=== PATIENT | female | born 1955 | race Caucasian/White ===

== ENCOUNTER 2018-07-24 06:40 | Observation (INO) ==
--- NOTE | 2018-07-24 06:58 | Anesthesia Evaluation PreOp ---
Date of Encounter: 07/24/18 Time of Encounter: 06:56 - Past History Planned Operation: Lap crystal Cardiac History: HTN, Hyperlipidemia Pulmonary History: Denies Any Significant HX OPERATIONS SCHEDULER History: Denies Any Significant HX Other Medical History: Renal (CKD 3), Other (polycystic ovarian ds) Anesthesia History: No Prior Anesthetic Complications, Past Anesthesia (bowel resection, CHERIE, T&A,) Alcohol Use: none Drug use: none Medications and Allergies Ciprofloxacin [Cipro] 500 mg PO BID #10 tablet 06/23/17 [Rx] Polyethylene Glycol 3350 [MiraLAX Powder Bulk 17.9 Oz] 1 scoop PO DAILY #510 gm 06/23/17 [Rx] Tramadol HCl [Ultram] 50 mg PO TID PRN #12 tab 06/23/17 [Rx] 3 Allergy/AdvReac Type Severity Reaction Status Date / Time No Known Allergies Allergy Verified 07/10/18 08:39 - Meds/Allergy Pre-op Review Medications Reviewed: Yes Allergies Reviewed: Yes Beta Blockers on Current Med List: No Anesthesia Results - Labs Laboratory Tests 01/23/18 07/10/18 07/10/18 08:02 08:58 08:58 Hgb 12.8 Hct 39.4 Plt Count 292 Sodium 139 Potassium 3.9 Chloride 104 Carbon Dioxide 28 BUN 19 Creatinine 0.87 - Imaging EKG: report reviewed (SINUS RHYTHM MINIMAL ST DEPRESSION) Anesthesia Exam - HEENT Pupil (Motor): EOMI Mallampati: II Teeth: Normal Oral Opening: Greater than 3 - OPERATIONS SCHEDULER LOC: Oriented OPERATIONS SCHEDULER Motor: Normal RUE, Normal LUE, Normal RLE, Normal LLE, Normal Face OPERATIONS SCHEDULER Sensory: Normal: RUE, LUE, RLE, LLE, Face - Cardiac Rhythm: Regular Murmur: None - Pulmonary Breath Sounds: bilateral Clear Respiratory Effort: Symmetrical Anesthesia Assess/Plan ASA Score: 2 Modified [place] Scale for Level of Consciousness: Cooperative, oriented, and tranquil Anesthetic Plan: General Monitoring Plan: Standard Monitors Recovery Plan: PACU (agrees to GA)
[2018-07-24] MEDS ORDERED: CeFAZolin Syr 2,000MG/20 ML 2,000 MG/20 ML SYRINGE IVPB ONE (07:06)
[2018-07-24] MEDS: Celecoxib 100 MG CAPSULE PO ONE ×2 (07:15→11:13)
[2018-07-24] MEDS ORDERED: Ringers Solution, Lactated 1,000 ML IVC SCH (07:15)
--- NOTE | 2018-07-24 07:38 | History & Physical Report ---
Date of Encounter: 07/24/18 Time of Encounter: 07:05 24 Hour HP Update - Instructions Instructions: If the History and Physical is less than 30 days old and was completed prior to A.M. admission and or procedure and has NOT been updated on calendar day of procedure please complete this update prior to performing procedure. - Update Patient reports changes in Medical Condition: No Changes in examination, assessment, or condition: No Changes in Medication: No Preop tests/diagnostics Reviewed: Yes Surgery Remains Indicated: Yes Consent for Planned Operative Procedure(s) Verified: Yes - Pre-Operative Checklist Preoperative Checklist Indicated: Yes Prophylactic Antibiotic Ordered: Yes Home Medications Include Beta Deepak: No Beta Deepak Taken Today (Day of Surgery): No Beta Deepak Taken Yesterday (Day Prior to Surgery): No Is VTE Prophylaxis Indicated?: Yes
[2018-07-24] MEDS ORDERED: Bupivacaine/EPI 1:200k 0.25%PF 30 ML VIAL ONE (07:40)
[2018-07-24] MEDS ORDERED: Isovue-300 50 ML VIAL IVP ONE (07:49)
[2018-07-24] MEDS ORDERED: *HR* FentaNYL (PF) 100 MCG/2 ML VIAL ONE (08:24)
[2018-07-24] MEDS ORDERED: EPHEDrine 50 MG/ML VIAL ONE (08:24)
[2018-07-24] MEDS ORDERED: *HR* Midazolam HCl 2 MG/2 ML VIAL ONE (08:24)
[2018-07-24] MEDS ORDERED: *HR* Propofol 200 MG/20 ML VIAL IVP ONE (08:24)
[2018-07-24] MEDS ORDERED: *HR* Morphine 10 MG/ML VIAL ONE (08:25)
[2018-07-24] MEDS ORDERED: Neostigmine Methylsulfate 3 MG/3 ML SYRINGE ONE (08:26)
[2018-07-24] MEDS ORDERED: Ondansetron 4 MG/2 ML VIAL IVP ONE (09:01)
[2018-07-24] MEDS ORDERED: *HR* Morphine 2 MG/ML SYRINGE IVP PRN (09:01)
[2018-07-24] MEDS ORDERED: *HR* OxyCODONE/APAP 5/325 TABLET PO PRN (09:19)
[2018-07-24] MEDS ORDERED: Ringers Solution, Lactated 500 ML IVC ONE (09:21)
--- NOTE | 2018-07-24 09:32 | Operative Note ---
Date of procedure: 07/24/18 Pre-op diagnosis: cholecystitis, cholelithiasis, biliary colic Post-op diagnosis: same Procedure: Laparoscopic cholecystectomy, intraoperative cholangiogram Complications: None apparent Anesthesia: GETA Local Anesthetics: 0.25% Sensorcaine HCL with Epinephrine 1:200,000 SubQ (cc) ( 30 mL) Surgeon: Ahmet Boggs Was there an inventory control assistant present: No Software Publisher Other: ANUSHA Anne Estimated blood loss (cc): 5 IV fluids (cc): 1,400 Specimen: gallbladder Condition: stable Disposition: PACU Procedure in Detail: The patient was brought to the operating room where she was placed supine on the procedure table. The patient was appropriately identified as to person and procedure. The accuracy of this information was confirmed by the procedure team. The patient was then intubated and anesthetized under the supervision of Dr. Herman Pineda. here were no palpable intra-abdominal masses when the abdomen was examined under anesthesia. The gallbladder was not obviously enlarged. The abdomen was then prepped and draped in the usual sterile fashion. Due to a previous history of transabdominal surgery through a low midline incision, the laparoscopic approach was initiated in the right upper quadrant, midclavicular line. Several milliliters of 0.25% bupivacaine were infiltrated in this location. A small transverse incision was made. The abdominal wall was grasped and elevated. A 5 mm port was established. The rigid laparoscope was placed within the obturator to visualize passage through the layers of the anterior abdominal wall. When the abdominal cavity was accessed, the obturator was replaced by the rigid laparoscope, the abdomen was insufflated with gaseous carbon dioxide. There was no obvious visible injury from establishing the port. There were significant adhesions at the level of the umbilicus. The usually placed infraumbilical port was placed cephalad and to the right of the umbilicus where there were no adhesions. This port was established under direct visualization. The rigid laparoscope was then shifted to this location to visualize placement of the remaining ports. All ports were infiltrated with bupivacaine with epinephrine solution. The gallbladder was tensely distended. It was necessary to aspirate approximately 60 mL clear green bile decompress the gallbladder. The gallbladder was then retracted exposing the hepatoduodenal ligament. This was dissected to skeletonize both the cystic duct and cystic artery. The cystic artery was clipped twice proximally and twice distally. The duct was clipped near the infundibulum the gallbladder. Via a separate percutaneous insertion site, a Taut cholangiogram catheter was introduced. The cystic duct was incised, the cholangiogram catheter inserted. Using C-arm fluoroscopy, a cholangiogram was then completed demonstrating a normal-appearing hepatobiliary tree. There were no filling defects. Dr Lombardo, [facility], provided an intra operative reading of the cholangiogram. The cholangiogram catheter was removed, the cystic duct was clipped and divided. The cystic artery was divided. The gallbladder was dissected from the liver bed using Ethicon harmonic halie. Once from the liver bed, the gallbladder was placed in an endoscopic pouch and removed via the port in the right lower anterior abdominal wall. The gallbladder was retrieved and sent to pathology. Multiple stones were palpable within the gallbladder. The liver bed was inspected for adequate hemostasis. When this was determined to be acceptable, pneumoperitoneum was evacuated and the the laparoscopic instrumentation was removed. The fascia of the right lower anterior abdominal wall port was closed with an interrupted figure-of- eight 0 Vicryl using S retractors. The skin edges of the port sites were approximated with subcuticular 4-0 Vicryl. The incisions were sealed with Dermabond dermal adhesive. The patient was returned to PACU in stable condition. Needle, sponge, and instrument counts were correct at the close of the case. Total volume of 0.25% bupivacaine with 1-200,000 units epinephrine used, 30 mL.
--- NOTE | 2018-07-24 10:12 | Event Note ---
Date of Encounter: 07/24/18 Time of Encounter: 10:11 Patient is demonstrating cardiac dysrhythmia following completion of laparoscopic cholecystectomy with intraoperative cholangiogram. Preoperative EKG was normal, however, postoperative EKG is not. This is been discussed with anesthesia as well as [facility] cardiology. It has been recommended that the patient be admitted to the floor for overnight monitoring and cardiac evaluation. The patient is aware of these findings and treatment plans.
--- NOTE | 2018-07-24 11:00 | Anesthesia Evaluation Post Op ---
Date of Encounter: 07/24/18 Time of Encounter: 10:56 - Vital Signs Vital Signs: Selected Entries 07/24/18 10:46 Temperature 98.5 F Pulse Rate 89 Respiratory Rate 14 Blood Pressure 136/79 O2 Sat by Pulse Oximetry 98 - Lungs Lungs: Clear Ascult./Percussion - Airway Airway: Non-obstructed - Cardiovascular Irregular Rate, New Rhythm (Patient has developed many supraventricular ectopic beats. No ST changes on EKG. Rate varies from 80's to low 100's. BP and sats are normal. Patient has no symptoms other than EKG changes. EKG reviewed with cardiology and they suggest observation of rhythm over nite. This is communicated to Dr Boggs.) - Mental Status Mental Status: Alert & Oriented, Answers Appropriately - Pain Pain Scale: 1 Pain Scale used: Numeric (1 - 10) - Nausea Vomiting Nausea Vomiting: Not Present - Hydration Hydration: Ice chips, Has not voided Notes: 07/24/18 11:00 I did order a potassium in PACU although there is no reason that it should be outside of normal limits but is a rule out lab for the arrhythmia. It is still pending at discharge to floor. - Discharge PostOp Status: Transfer Patient to floor
[2018-07-24] MEDS ORDERED: Acetaminophen 325 MG TABLET PO PRN (11:27)
--- NOTE | 2018-07-24 11:36 | Operative Note ---
Date of procedure: 07/24/18 Pre-op diagnosis: Left inguinal hernia Post-op diagnosis: same (Left inguinal sliding hernia) Procedure: Repair of left inguinal sliding hernia with Bard PerFix plug and Marlex mesh onlay patch Implants: Bard PerFix plug, Marlex mesh onlay patch Complications: None apparent Anesthesia: GETA Local Anesthetics: 0.25% Sensorcaine HCL with Epinephrine 1:200,000 SubQ (cc) ( 30 mL) Surgeon: Ahmet Boggs Was there an visitor service assistant present: No Steam Trap Man Other: ANUSHA duran Estimated blood loss (cc): 2 IV fluids (cc): 1,000 Specimen: none Condition: stable Disposition: PACU Procedure in Detail: The patient was brought to the operating room where he was placed supine on the procedure table. The patient was appropriately identified as to person, procedure, and laterality. The accuracy of this information was confirmed by the patient and procedure team. The patient was then intubated and anesthetized under the supervision of Dr. Herman Pineda. The abdomen and genitalia were prepped and draped in the usual sterile fashion. An oblique skin incision was planned with a skin scribe just cephalad and parallel to an imaginary line drawn from the anterior superior iliac spine to the pubic tubercle. Several milliliters of 0.25% bupivacaine with 1-200,000 units of epinephrine before the skin was incised. Dissection was extended to the aponeurosis of the external oblique. Bleeding points were controlled with electrocautery. The aponeurosis was incised in the direction of its fibers. The spermatic cord was identified, skeletonized, And tagged with a half-inch [place] drain. Examination of the spermatic cord did not demonstrate an indirect inguinal hernia. Examination of Hesselbach triangle did not demonstrate a direct hernia. Other exploration of the spermatic cord demonstrated a hernia sac proximally near the internal ring. This was dissected from the surrounding tissue. It became apparent that this was a sliding inguinal hernia involving the sigmoid. The sigmoid colon was reduced. The defect filled with a Bard PerFix plug which was anchored to the surrounding fascial edges with interrupted 2-0 Vicryl. Several milliliters of 0.25% bupivacaine with 1-200,000 units epinephrine was infiltrated into these fascial edges. A knitted polypropylene mesh prosthesis was then placed around the spermatic cord. This prosthesis placed at the pubic tubercle and extended circumferentially around the spermatic cord. The prosthesis was anchored to the pubic tubercle medially, the shelving edge of the inguinal ligament inferiorly and the transversalis fascia cephalad with interrupted 2-0 Vicryl. Several milliliters of bupivacaine with 1-200,000 epinephrine was infiltrated into this repair. The aponeurosis was then closed over the mesh repair with interrupted 2-0 Vicryl. The subcutaneous tissue was approximated with 3-0 Vicryl. The skin edges were approximated with subcuticular 4-0 Vicryl. The incision was sealed with Dermabond dermal adhesive. The patient was taken to recovery in stable condition. Needle, sponge, and instrument counts were correct at the close of the case. Total volume of 0.25% bupivacaine with 1-200, 000 units epinephrine used, 30 mL.
--- NOTE | 2018-07-24 12:43 | Cardiology Consult Note ---
Date of Encounter: 07/24/18 Time of Encounter: 12:20 Assessment and Plan (1) Atrial tachycardia Current Visit: Yes Status: Acute ECGs/telemetry strips reviewed with Dr. Juarez; appear to be runs of atrial tachycardia in the post-operative (lap crystal) setting. Patient reports intermittent palpitations (occur at night) that have been present for the past year--not bothersome. Telemetry reviewed; few PACs, PVCs noted. Describes mild, non-radiating chest pressure during events; improves with sitting up. Troponin negative. Patient reports she is fairly active at home, push mows lawn (1.5-2 hours) without symptoms. Will add low dose BB. Check BMP, Mg, TSH in AM. Check TTE to evaluate structure and function. Recommend outpatient follow-up with Cardiology in 4-6 weeks. Discussion w patient/family: The assessment and plan as outlined above was discussed with the patient and/or family members who expressed understanding and agreement. All questions were answered. Thank you for involving us in the care of your patient. Please call with any questions. The patient will be discussed and reviewed with Dr. Juarez; changes to be made accordingly. History of Present Illness Consult date: 07/24/18 Requesting physician: Ahmet Boggs Consult reason: Arrhythmia Chief complaint: Chest pressure History of present illness: Ms. Amezcua is a 63 year old female with PMHx significant for HTN and MVP who presented today for elective lap. cholecystectomy. She tolerated procedure well ; however in the recovery room there was a concern for new cardiac arrhythmia on monitor. She was then admitted for observation overnight. Patient denies prior diagnosis of arrhythmia; however reports palpitations that occur often, mostly at night, over the past year. She states palpitations are not bothersome and usually improve with sitting up. Also reports intermittent non-radiating chest pressure that also occurs while laying down, improves with sitting up. Ms. Amezcua reports she is very active at home, is able to push mow lawn ( usually takes 1.5-2 hours) without chest pain or discomfort. She notes she was told by her PCP in December 2017 that she may have an irregular heart beat, however ECG completed in office was normal. She has no complaints upon exam. Past Med Surg Social Fam HX - Past Medical History Attestation: Yes The following information was validated with the patient. Source: patient Medical history: hypertension Additional medical history: gallstones. HTN. Colonic polyps. Vit D Def. Diverticulosis. Fatigue. OP. MVP HX. Polycystic ovarian syndrome Psychiatric history: no psych history - Past Surgical History Surgical History: cholecystectomy, hysterectomy Additional surgical history: colonoscopy 2013. hysterectomy 1999. bowel resection 1999. T&A 1956. polypectomy 1985. tubal ligation 1984 - Social History Smoking Status: Former smoker Smokeless Tobacco Status: No Alcohol use: none Drug use: none - Family History Mother Living Status: Cause of : Kidney failure Hx Family Autoimmune Disorders: Yes (RA) Hx Family Medical Disorders: Yes (Renal failure) Father Living Status: Cause of : Complications d/t Alzeheimers Hx Family Neurologic Disorders: Yes (Alzeheimers) Medications and Allergies Losartan [Cozaar] 25 mg PO DAILY 07/24/18 [History] Multivitamin [Multivitamins] 1 each PO DAILY 07/24/18 [History] 3 Allergy/AdvReac Type Severity Reaction Status Date / Time No Known Allergies Allergy Verified 07/24/18 07:11 All Systems Review: The remainder of the systems were reviewed and are negative - Cardiovascular Cardiovascular: as per HPI Physical Examination Vital Signs, Last 4 Hours Temp Pulse Resp BP Pulse Ox 07/24/18 11:30 80 16 114/78 95 07/24/18 11:10 97.8 F 66 17 138/74 94 07/24/18 10:46 98.5 F 89 14 136/79 98 07/24/18 10:36 105 15 145/59 97 07/24/18 10:26 98.5 F 103 14 139/71 96 07/24/18 10:16 101 15 135/73 99 07/24/18 10:06 118 14 139/82 97 07/24/18 09:56 97.7 F 117 13 136/76 96 07/24/18 09:46 123 14 118/68 96 07/24/18 09:36 98 15 112/64 98 07/24/18 09:26 97.2 F L 89 16 127/64 100 General: Conversant HEENT: Atraumatic, Normocephaly Cardiac: Reg Rate and Rhythm, Normal S1 and S2 Lungs: Normal Breath Sounds Neuro: Alert and responsive Abdomen: Soft Skin: No rashes noted on visualized skin Musculoskeletal: No Chest Wall Tenderness Extremities: No Edema, Normal Pulses Results 07/24/18 09:54 Lab Results 07/24/18 07/24/18 09:54 11:31 Potassium 3.7 Troponin I < 0.03 Active Medications Acetaminophen (Tylenol) 650 mg PO Q6HR PRN PRN Reason: Pain Stop: 01/23/19 11:28 Oxycodone/Acetaminophen (Percocet 5/325) 1 each PO Q6H PRN PRN Reason: pain not relieved by Tylenol Stop: 01/23/19 09:31 - Imaging and Cardiology Echo: pending Other Results: 12 hour tele: avg HR=85 SR. PVCs,PACs noted. - EKG Interpretation EKG results cardiology: personally reviewed Consult Discharge Plan - Plan Referrals: Torrie De La Cruz CNP [Primary Care Provider] -
[2018-07-24] MEDS ORDERED: Perflutren Lipid Microsphere 1.3 ML in 0.9 % Sodium Chloride 8.7 ML IVP ONE (16:18)
[2018-07-24] MEDS ORDERED: Ondansetron 4 MG/2 ML VIAL IVP PRN (17:05)
--- NOTE | 2018-07-24 17:09 | General Surgery Progress Note ---
Date of Encounter: 07/24/18 Time of Encounter: 17:06 Subjective Narrative: General Surgery - Postop; patient feeling well, describes minimal pain. Cardiac rhythm apparently has returned normal. Cardiac evaluation in progress. Appreciate Dr. Juarez's assistance. Lungs: Clear Abdomen: Soft with minimal right upper quadrant tenderness. Port sites intact. Active bowel sounds. Potassium 3.7; troponins less than 0.03 Echocardiogram completed but results pending Impression: Acceptable postoperative status, status post laparoscopic cholecystectomy with intraoperative cholangiogram. Postoperative dysrhythmia of uncertain significance. Evaluation in progress. Objective Vital Signs - Last 8 Hours Temp Pulse Resp BP Pulse Ox 07/24/18 16:34 97.5 F L 76 17 130/69 92 07/24/18 12:39 56 16 106/68 97 07/24/18 11:30 80 16 114/78 95 07/24/18 11:10 97.8 F 66 17 138/74 94 07/24/18 10:46 98.5 F 89 14 136/79 98 07/24/18 10:36 105 15 145/59 97 07/24/18 10:26 98.5 F 103 14 139/71 96 07/24/18 10:16 101 15 135/73 99 07/24/18 10:06 118 14 139/82 97 07/24/18 09:56 97.7 F 117 13 136/76 96 07/24/18 09:46 123 14 118/68 96 07/24/18 09:36 98 15 112/64 98 07/24/18 09:26 97.2 F L 89 16 127/64 100 Intake and Output 07/24/18 07/24/18 07/24/18 07:59 15:59 23:59 Intake Total 360 / 360 Output Total 5 / 5 Balance 355 / 355 Intake: Oral 360 / 360 Output: Estimated Blood Loss 5 / 5 Other: Meal Lunch Percent of Meal Consumed 90% Weight 83.008 kg Patient Weight 07/24/18 23:59 Weight 83.008 kg - Labs 07/24/18 09:54 Diabetes panel 07/24/18 Range/Units 09:54 Potassium 3.7 (3.5-5.1) mEq/L Pituitary panel 07/24/18 Range/Units 09:54 Potassium 3.7 (3.5-5.1) mEq/L Adrenal panel 07/24/18 Range/Units 09:54 Potassium 3.7 (3.5-5.1) mEq/L Consult Discharge Plan - Plan Referrals: Torrie De La Cruz, WEN [Primary Care Provider] -
[2018-07-25 06:54] LABS: BUN/Creatinine Ratio 17 (6-26); Blood Urea Nitrogen 13 mg/dL (8-23); Calcium 8.8 mg/dL (8.6-10.3); Carbon Dioxide 26 mEq/L (23-29); Chloride 100 mEq/L (98-107); Glucose 100 mg/dL (70-105); Magnesium 2.2 mg/dL (1.6-2.6); Osmolality,Calculated 274 (280-300); Potassium 3.8 mEq/L (3.5-5.1); Sodium 132 mEq/L (136-145); eGFR For Non-African Americans > 60 (> 60)
[2018-07-25 07:25] VITALS: BP 135/70
--- NOTE | 2018-07-25 09:41 | Cardiology Progress Note ---
Date of Encounter: 07/25/18 Time of Encounter: 09:30 Assessment and Plan (1) Atrial tachycardia Current Visit: Yes Status: Acute ECGs/telemetry strips reviewed with Dr. Juarez; appear to be runs of atrial tachycardia in the post-operative (lap crystal) setting. Patient reports intermittent palpitations (occur at night) that have been present for the past year--not bothersome. Telemetry reviewed; few PACs, PVCs noted. Describes mild, non-radiating chest pressure during events; improves with sitting up. Troponin negative. Patient reports she is fairly active at home, push mows lawn (1.5-2 hours) without symptoms. No significant events on telemetry overnight, continue BB. TTE shows preserved LVEF with normal wall motion. Labs including electrolytes and TSH normal. Cardiology will sign-off, will coordinate outpatient follow-up with Cardiology in 4-6 weeks. Discussion w patient/family: The assessment and plan as outlined above was discussed with the patient and/or family members who expressed understanding and agreement. All questions were answered. Thank you for involving us in the care of your patient. Please call with any questions. The patient will be discussed and reviewed with Dr. Uribe; changes to be made accordingly. Subjective Principal diagnosis: Post op lap crystal/atach Interval history: Seen and examined; no events noted overnight on telemetry. No complaints of palpitations overnight. No chest pain described. Objective Vital Signs, Last 4 Hours Temp Pulse Resp BP Pulse Ox 07/25/18 07:24 98.4 F 66 20 135/70 98 General: Conversant, No Apparent Distress HEENT: Atraumatic, Normocephaly, Mucus Membranes Moist Cardiac: Reg Rate and Rhythm, Normal S1 and S2 Lungs: Normal Breath Sounds Neuro: Alert and responsive Abdomen: Soft Skin: No rashes noted on visualized skin Musculoskeletal: No Chest Wall Tenderness Extremities: No Edema, Normal Pulses Results 07/25/18 04:59 Lab Results 07/24/18 07/24/18 07/25/18 09:54 11:31 04:59 Sodium 132 L Potassium 3.7 3.8 Chloride 100 Carbon Dioxide 26 BUN 13 Creatinine 0.76 Glucose 100 Calcium 8.8 Magnesium 2.2 Troponin I < 0.03 TSH 07/25/18 04:59 Sodium Potassium Chloride Carbon Dioxide BUN Creatinine Glucose Calcium Magnesium Troponin I TSH 0.765 Impressions Echocardiogram 07/24/18 12:41 Impressions: LVEF 55-60%. Mild left ventricular diastolic dysfunction. There is no LV thrombus. Definity echo contrast was used. Normal right ventricular structure and function. No significant valvular dysfunction Unable to estimate RVSP due to lack of TR jet. Left Ventricular Wall Motion: Rest Echo Findings All wall segments showed normal motion. Findings: Study Quality * Technically sub-optimal due to poor echocardiographic windows. ECG Findings * Normal sinus rhythm. Left Ventricle * LVEF 55-60%. * Mild concentric left ventricular hypertrophy. * Mild left ventricular diastolic dysfunction. * There is no LV thrombus. * Definity echo contrast was used. Right Ventricle * Normal right ventricular structure and function. Left Atrium * Normal left atrial size. Right Atrium * Normal right atrial size. Interatrial Septum * No evidence of PFO by color Doppler. Aortic Valve * Aortic valve not well visualized. * No aortic stenosis. Mitral Valve * Normal mitral valve structure. * No mitral regurgitation. * No mitral stenosis. Tricuspid Valve * Normal tricuspid valve structure. * No tricuspid regurgitation. * No tricuspid stenosis. * Unable to estimate RVSP due to lack of TR jet. Pulmonic Valve * Pulmonic valve is not well visualized. Aorta * Normally sized aortic root. Pericardium * The pericardium appears normal. IVC * Normal IVC dimensions and inspiratory collapse. Pulmonary Artery * Normal visualized portions of the main pulmonary artery. Active Medications Acetaminophen (Tylenol) 650 mg PO Q6HR PRN PRN Reason: Pain Stop: 01/23/19 11:28 Metoprolol Tartrate (Lopressor) 12.5 mg PO BID LAYLA Stop: 01/23/19 21:01 Last Admin: 07/25/18 08:38 Dose: 12.5 mg Ondansetron HCl (Zofran) 4 mg IVP Q4H PRN; Protocol PRN Reason: nausea / vomiting Stop: 01/23/19 17:06 Oxycodone/Acetaminophen (Percocet 5/325) 1 each PO Q6H PRN PRN Reason: pain not relieved by Tylenol Stop: 01/23/19 09:31 - Imaging and Cardiology Echo: report reviewed Other Results: 12 hour tele: avg HR=67 SR. Few PACs noted. - EKG Interpretation EKG results cardiology: personally reviewed Consult Discharge Plan - Plan Referrals: Torrie De La Cruz, [employer]END[employer] [Primary Care Provider] -
--- NOTE | 2018-07-25 10:59 | Discharge Summary ---
Outpatient Proc Discharge Plan - Plan Additional Instructions: Patient may consume a regular diet Activity as tolerated; lifting limited less than 20 pounds Patient may shower, wash incision with soap and water Tylenol, ibuprofen, Motrin, Advil, etc. as needed for pain Prescription for Metoprolol XL 12.5 mg by mouth BID (per cardiology) Prescription for Percocet 5/325, #8, one every 6-8 hours as needed for pain not relieved by Tylenol or other [id number] medications Follow-up my office, 1 week, 08/01/18. Follow-up with cardiology, Dr. Juarez, 4 weeks. Please call to make appointment Patient to resume home meds Prescriptions: Metoprolol [Lopressor] 12.5 mg PO BID #60 tablet OxyCODONE/APAP 5/325 [Percocet 5/325 MG] 1 each PO Q6H PRN 2 Days #8 tablet PRN Reason: Pain Home Medications: Losartan [Cozaar] 25 mg PO DAILY 07/24/18 [History] Multivitamin [Multivitamins] 1 each PO DAILY 07/24/18 [History] Acetaminophen [Tylenol] 650 mg PO Q6HR PRN tablet 07/25/18 [Rx] Metoprolol [Lopressor] 12.5 mg PO BID #60 tablet 07/25/18 [Rx] OxyCODONE/APAP 5/325 [Percocet 5/325 MG] 1 each PO Q6H PRN 2 Days #8 tablet [Rx]
--- NOTE | 2018-07-25 12:27 | General Surgery Progress Note ---
Date of Encounter: 07/25/18 Time of Encounter: 10:30 Subjective Patient reports: feels better Narrative: General Surgery - POD#1 Patient feeling well; denies significant port site pain or tenderness Cardiac status stable; dysrhythmia/atrial tachycardia controlled/resolved. Appreciate Dr. Juarez's assistance Patient has remained afebrile since surgery; currently 98.4, pulse 66 and regular, respirations 20 and nonlabored, blood pressure 135/70 Lungs: Clear Abdomen: Soft, minimal tenderness at the port site right lower abdomen. Port sites intact. No peritoneal signs. Active bowel sounds. Operative pathology: Chronic cholecystitis, cholelithiasis. Impression: Postoperative day #1, status post laparoscopic cholecystectomy with intraoperative cholangiogram. Postoperative atrial tachycardia - resolved/controlled Acceptable postoperative status Plan: Discharge home Outpatient follow-up in the office, 08/01/18 Cardiac follow-up with Dr. Juarez, approximately 4 weeks. Objective Vital Signs - Last 8 Hours Temp Pulse Resp BP Pulse Ox 07/25/18 07:24 98.4 F 66 20 135/70 98 07/25/18 04:25 98.5 F 74 16 118/65 96 Intake and Output 07/24/18 07/25/18 07/25/18 23:59 07:59 15:59 Intake Total 420 / 420 550 / 550 120 / 120 Balance 420 / 420 550 / 550 120 / 120 Intake: Oral 420 / 420 550 / 550 120 / 120 Other: Meal Dinner Breakfast Percent of Meal Consumed 100% # Voids 2 - Labs 07/25/18 04:59 Diabetes panel 07/25/18 Range/Units 04:59 Sodium 132 L (136-145) mEq/L Potassium 3.8 (3.5-5.1) mEq/L Chloride 100 (98-107) mEq/L Carbon Dioxide 26 (23-29) mEq/L BUN 13 (8-23) mg/dL Creatinine 0.76 (0.60-1.20) mg/dL Glucose 100 (70-105) mg/dL Calcium 8.8 (8.6-10.3) mg/dL Thyroid panel 07/25/18 Range/Units 04:59 TSH 0.765 (0.340-5.600) mcIU/mL Calcium panel 07/25/18 Range/Units 04:59 Calcium 8.8 (8.6-10.3) mg/dL Pituitary panel 07/25/18 07/25/18 Range/Units 04:59 04:59 Sodium 132 L (136-145) mEq/L Potassium 3.8 (3.5-5.1) mEq/L Chloride 100 (98-107) mEq/L Carbon Dioxide 26 (23-29) mEq/L BUN 13 (8-23) mg/dL Creatinine 0.76 (0.60-1.20) mg/dL Glucose 100 (70-105) mg/dL Calcium 8.8 (8.6-10.3) mg/dL TSH 0.765 (0.340-5.600) mcIU/mL Adrenal panel 07/25/18 Range/Units 04:59 Sodium 132 L (136-145) mEq/L Potassium 3.8 (3.5-5.1) mEq/L Chloride 100 (98-107) mEq/L Carbon Dioxide 26 (23-29) mEq/L BUN 13 (8-23) mg/dL Creatinine 0.76 (0.60-1.20) mg/dL Glucose 100 (70-105) mg/dL Calcium 8.8 (8.6-10.3) mg/dL Consult Discharge Plan - Plan Instructions: Metoprolol (By mouth), Oxycodone/Acetaminophen (By mouth) Additional Instructions: Patient may consume a regular diet Activity as tolerated; lifting limited less than 20 pounds Patient may shower, wash incision with soap and water Tylenol, ibuprofen, Motrin, Advil, etc. as needed for pain Prescription for Metoprolol XL 12.5 mg by mouth BID (per cardiology) Prescription for Percocet 5/325, #8, one every 6-8 hours as needed for pain not relieved by Tylenol or other [id number] medications Follow-up my office, 1 week, 08/01/18. Follow-up with cardiology, Dr. Juarez, 4 weeks. Please call to make appointment Patient to resume home meds Referrals: Torrie De La Cruz, WEN [Primary Care Provider] - 07/31/18 1:00 pm Prescriptions: Metoprolol [Lopressor] 12.5 mg PO BID #60 tablet OxyCODONE/APAP 5/325 [Percocet 5/325 MG] 1 each PO Q6H PRN 2 Days #8 tablet PRN Reason: Pain
--- NOTE | 2018-07-28 09:23 | Electrocardiograph Report ---
[place] [id number] Test Date: 2018-07-24 Pat Name: Daxa Amezcua Department: 106 Room: 3B38 Gender: F [employer] Electronic Technician: : [id number] Requested By: Herman Pineda Order Number: [id number] Reading MD: Henry Juarez Measurements Intervals [place] Rate: 111 P: 29 MA: 146 QRS: 33 QRSD: 83 T: 193 QT: 317 QTc: 383 Interpretive Statements SINUS TACHYCARDIA WITH FREQUENT VENTRICULAR PREMATURE COMPLEXES WITH FREQUENT SUPRAVENTRICULAR PREMATURE COMPLEXES NONSPECIFIC ST & T-WAVE ABNORMALITY Electronically Signed On 07-28-2018 9:21:59 EDT by Henry Juarez
== END 2018-07-25 11:44 | disposition home or self-care (01) ==
LOC: 3BNU 06:40 → SAMDAY 06:40 → 3BNU 10:39
PROVIDERS: ADMIT Surgery; ATTEND Surgery